=== PATIENT | female | born 1990 | race Caucasian/White ===

== ENCOUNTER 2025-03-01 16:10 | Emergency (ER) | payer BC ==
[~2025-03-01] VITALS: Ht 165.1 cm; Wt 101.0 kg
[2025-03-01 16:19] VITALS: O2SAT 98
[2025-03-01] MEDS: LIDOCAINE 5% PATCH TOP SCH (17:55)
[2025-03-01] MEDS: ACETAMINOPHEN 500MG TABLET PO ONE (17:55)
[2025-03-01] MEDS: KETOROLAC 15MG/ML VIAL IM ONE (17:55)
[2025-03-01] MEDS ORDERED: IBUP-2028 MT (18:00)
[2025-03-01] MEDS ORDERED: LIDO700A30 TP (18:00)
[2025-03-01 18:07] VITALS: BP 115/54; PULSE 65; RESP 18; TEMP 36.8; O2SAT 100
== END 2025-03-01 18:24 | disposition home or self-care (01) ==
LOC: ER 16:10
DX: M54.50 Low back pain, unspecified (principal); R51.9 Headache, unspecified
CPT/HCPCS: 99283; 96372; J1885